=== PATIENT | male | born 1945 | race Caucasian/White ===

== ENCOUNTER 2017-05-09 08:50 | Outpatient (CLI) | payer MEDICARE ==
--- NOTE | 2017-05-09 09:16 | RAD ---
PA AND LATERAL VIEWS CHEST: HISTORY: Dyspnea. FINDINGS: The heart size is normal. The lungs are expanded with changes of COPD. No confluent areas of con solidation, pneumothorax, or pleural effusions are seen. No acute osseous abnormalities are seen. IMPRESSION: Chronic obstructive pulmonary disease. POS: [facility]
== END 2017-05-09 08:51 | disposition home or self-care (01) ==
LOC: RAD 08:50
PROVIDERS: ATTEND Internal Medicine Critical Care Medicine
DX: R06.00 Dyspnea, unspecified (principal); J44.9 Chronic obstructive pulmonary disease, unspecified
CPT/HCPCS: 71020